=== PATIENT | female | born 1990 | race Caucasian/White ===

== ENCOUNTER 2019-05-20 13:15 | Inpatient (IN) | payer OTHER ==
[~2019-05-20] VITALS: Ht 162.6 cm; Wt 84.1 kg
[~2019-05-20 13:15] MED LIST: IBUP-1222 PO; OXYC-302 PO; PREN1TAB60 PO
[2019-05-23 23:36] VITALS: BP 130/82
[2019-05-23] MEDS ORDERED: NEWBORN KIT ONE (23:46)
[2019-05-23] MEDS ORDERED: LACTATED RINGERS 1,000 ML IV SCH (23:48)
[2019-05-23] MEDS ORDERED: OXYTOCIN 30U/ 0.9% NaCL 500ML 500 ML IV PRN (23:48)
[2019-05-23] MEDS ORDERED: OXYTOCIN 30U/ 0.9% NaCL 500ML 500 ML IV ONE (23:48)
[2019-05-23] MEDS: D5%-LACTATED RINGERS 1,000 ML IV SCH (23:48)
[2019-05-23] MEDS ORDERED: FENTANYL/BUPIV./NS/PF 250 ML EPIDCONT SCH (23:55)
[2019-05-23] MEDS ORDERED: OXYTOCIN 30U/ 0.9% NaCL 500ML 500 ML ONE (23:58)
[2019-05-24] MEDS ORDERED: METOCLOPRAMIDE 5 MG/ML, 2ML IVPush PRN
[2019-05-24] MEDS ORDERED: SODIUM CITRATE/CITRIC ACID 30 ML UDC PO PRN
[2019-05-24] MEDS ORDERED: FENTANYL PF 100 MCG/2ML IV PRN
[2019-05-24] MEDS ORDERED: ALUMINUM/MAG/SIMETHICONE 30 ML UDC PO PRN
[2019-05-24] MEDS ORDERED: TERBUTALINE 1 MG/ML, 1ML IVPush PRN
[2019-05-24] MEDS ORDERED: FENTANYL PF 100 MCG/2ML IVPush PRN
[2019-05-24] MEDS ORDERED: TERBUTALINE 1 MG/ML, 1ML SQ PRN
[2019-05-24] MEDS ORDERED: ONDANSETRON 2MG/ML, 2ML IVPush PRN
[2019-05-24 00:21] LABS: BASOPHILS # (AUTO) 0.02 x10^3/uL (0-0.1); BASOPHILS % (AUTO) 0 % (0-1); EOSINOPHILS # (AUTO) 0.07 x10^3/uL (0-0.4); EOSINOPHILS % (AUTO) 1 % (1-7); LYMPHOCYTES # (AUTO) 2.23 x10^3/uL (1-3.4); LYMPHOCYTES % (AUTO) 20 % (22-44); MD NO; MEAN CORPUSCULAR HEMOGLOBIN 26.2 pg (27.0-34.8); MEAN CORPUSCULAR HGB CONC 32.6 g/dL (32.4-35.8); MEAN CORPUSCULAR VOLUME 80.3 fL (80-100); MEAN PLATELET VOLUME 10.9 fL (7.4-10.4); MONOCYTES % (AUTO) 6 % (2-9); NEUTROPHILS % (AUTO) 74 % (42-75); PLATELET COUNT 214 x10^3/uL (130-400); RED BLOOD COUNT 4.03 x10^6/uL (3.82-5.3); RED CELL DISTRIBUTION WIDTH 16.3 % (9.6-15.2)
[2019-05-24] MEDS ORDERED: FENTANYL/BUPIV./NS/PF 250 ML EPIDCONT SCH ×2 (00:40→00:41)
[2019-05-24] MEDS ORDERED: LACTATED RINGERS 1,000 ML IV SCH ×2 (00:40→00:41)
[2019-05-24] MEDS ORDERED: BUPIVACAINE 0.25% ONE (00:44)
[2019-05-24] MEDS ORDERED: NALOXONE 0.4 MG/ML, 1ML IVPush PRN ×2 (01:00)
[2019-05-24] MEDS ORDERED: LACTATED RINGERS 1,000 ML IVBOLUS PRN ×2 (01:00)
[2019-05-24] MEDS ORDERED: EPHEDRINE 50 MG/ML, 1ML IVPush PRN ×2 (01:00)
[2019-05-24] MEDS: D5%-LACTATED RINGERS 1,000 ML IV SCH (01:16)
[2019-05-24] MEDS ORDERED: OXYTOCIN 30U/ 0.9% NaCL 500ML 500 ML ONE (03:39)
[2019-05-24] MEDS: OXYTOCIN 30U/ 0.9% NaCL 500ML 500 ML IV SCH ×18 (03:39→23:43)
[2019-05-24] MEDS ORDERED: IBUPROFEN 600 MG TABLET ONE (03:39)
[2019-05-24] MEDS ORDERED: MAGNESIUM HYDROXIDE 8%, 30ML UDC PO PRN (04:00)
[2019-05-24] MEDS ORDERED: OXYcodone/APAP 5/325MG TABLET PO PRN ×2 (04:00)
[2019-05-24] MEDS ORDERED: METHYLERGONOVINE 0.2 MG/ML IM PRN (04:00)
[2019-05-24] MEDS ORDERED: MISOPROSTOL 200 MCG TABLET SL PRN (04:00)
[2019-05-24] MEDS ORDERED: ONDANSETRON 2MG/ML, 2ML IV PRN (04:00)
[2019-05-24] MEDS ORDERED: CALCIUM CARBONATE 500 MG TAB.CHEW PO PRN ×2 (04:00)
[2019-05-24] MEDS ORDERED: SIMETHICONE 80 MG CHEW TAB PO PRN (04:00)
[2019-05-24] MEDS ORDERED: GLYCERIN ADULT SUPP PR PRN (04:00)
[2019-05-24 05:25] VITALS: BP 114/72
[2019-05-24 07:30] VITALS: BP 118/72
[2019-05-24] MEDS: PRENATAL VIT/IRON/FA 1 EACH TABLET PO SCH (07:39)
[2019-05-24] MEDS: DOCUSATE 100 MG CAPSULE PO PRN (07:39)
[2019-05-24] MEDS: IBUPROFEN 600 MG TABLET PO PRN ×3 (10:26→21:52)
[2019-05-24 11:44] LABS: BASOPHILS % (AUTO) 0 % (0-1); EOSINOPHILS # (AUTO) 0.01 x10^3/uL (0-0.4); EOSINOPHILS % (AUTO) 0 % (1-7); LYMPHOCYTES # (AUTO) 1.25 x10^3/uL (1-3.4); LYMPHOCYTES % (AUTO) 9 % (22-44); MD NO; MEAN CORPUSCULAR HEMOGLOBIN 26.3 pg (27.0-34.8); MEAN CORPUSCULAR HGB CONC 32.9 g/dL (32.4-35.8); MEAN CORPUSCULAR VOLUME 80.2 fL (80-100); MEAN PLATELET VOLUME 10.9 fL (7.4-10.4); MONOCYTES % (AUTO) 2 % (2-9); NEUTROPHILS # (AUTO) 11.98 x10^3/uL (1.8-6.8); NEUTROPHILS % (AUTO) 89 % (42-75); PLATELET COUNT 187 x10^3/uL (130-400); RED BLOOD COUNT 3.71 x10^6/uL (3.82-5.3); RED CELL DISTRIBUTION WIDTH 16.4 % (9.6-15.2)
[2019-05-24 12:25] VITALS: BP 122/76
[2019-05-24 15:30] VITALS: BP 118/72
[2019-05-24] MEDS: HYDROCORT PR SCH ×2 (15:49→20:00)
[2019-05-24] MEDS: PRAMOXINE PR SCH ×2 (15:49→20:00)
[2019-05-24 19:30] VITALS: BP 117/73
[2019-05-25] VITALS: BP 98/62
[2019-05-25] MEDS: OXYTOCIN 30U/ 0.9% NaCL 500ML 500 ML IV SCH ×8 (01:09→09:45)
[2019-05-25] MEDS: DOCUSATE 100 MG CAPSULE PO PRN ×2 (03:59→09:46)
[2019-05-25] MEDS: IBUPROFEN 600 MG TABLET PO PRN ×2 (03:59→09:46)
[2019-05-25 04:00] VITALS: BP 119/80
[2019-05-25] MEDS: PRAMOXINE PR SCH (09:00)
[2019-05-25] MEDS: HYDROCORT PR SCH (09:00)
[2019-05-25 09:30] VITALS: BP 117/79
[2019-05-25] MEDS: PRENATAL VIT/IRON/FA 1 EACH TABLET PO SCH (09:46)
[2019-05-25] MEDS ORDERED: IBUP-1222 PO (11:02)
[2019-05-25] MEDS ORDERED: DOCU-131 PO (11:02)
== END 2019-05-25 12:17 | disposition home or self-care (01) | DRG 768 ==
LOC: LDIP 05-23 23:35 → 2NW 05-24 05:04
PROVIDERS: ADMIT Obstetrics & Gynecology; ATTEND Obstetrics & Gynecology
PROC: 10E0XZZ Delivery of Products of Conception, External Approach (ICD-10-PCS; principal; 2019-05-24)
PROC: 0DQR0ZZ Repair Anal Sphincter, Open Approach (ICD-10-PCS; 2019-05-24)
PROC: 10907ZC Drainage of Amniotic Fluid, Therapeutic from Products of Conception, Via Natural or Artificial Opening (ICD-10-PCS; 2019-05-24)
PROC: 3E0R3BZ Introduction of Anesthetic Agent into Spinal Canal, Percutaneous Approach (ICD-10-PCS; 2019-05-24)
PROC: 00HU33Z Insertion of Infusion Device into Spinal Canal, Percutaneous Approach (ICD-10-PCS; 2019-05-24)
DX: O48.0 Post-term pregnancy (principal); Z37.0 Single live birth; O70.20 Third degree perineal laceration during delivery, unspecified; O99.354 Diseases of the nervous system complicating childbirth; O22.43 Hemorrhoids in pregnancy, third trimester; O76 Abnormality in fetal heart rate and rhythm complicating labor and delivery; O99.02 Anemia complicating childbirth; D50.9 Iron deficiency anemia, unspecified; O77.0 Labor and delivery complicated by meconium in amniotic fluid; G43.909 Migraine, unspecified, not intractable, without status migrainosus; Z3A.40 40 weeks gestation of pregnancy; Z80.3 Family history of malignant neoplasm of breast; Z83.3 Family history of diabetes mellitus
CPT/HCPCS: 36415; J7121; 85025; 86592; 86850; 86900; G0378; J2590; J7120